=== PATIENT | female | born 1965 | race African-American/Black ===

== ENCOUNTER 2017-11-28 07:48 | Emergency (ER) | payer OTHER ==
[~2017-11-28] VITALS: Ht 165.1 cm; Wt 66.2 kg
[2017-11-28 07:49] VITALS: BP 153/101
[2017-11-28 08:53] LABS: Urine Bacteria NONE SEEN /hpf (None Seen); Urine Blood 1+ /uL (Negative); Urine Mucus FEW (None Seen); Urine Specific Gravity 1.018 (1.001-1.035); Urine WBC 2 /hpf (0 - 5)
[2017-11-28] MEDS ORDERED: cefTRIAXone SOD 500 MG VL IM ONE (09:45)
== END 2017-11-28 09:49 | disposition home or self-care (01) ==
LOC: ER 07:48
DX: A59.01 Trichomonal vulvovaginitis (principal); N39.0 Urinary tract infection, site not specified
CPT/HCPCS: 81001; 87210; 96372; 99284; J0696